=== PATIENT | male | born 2000 | race Asian ===

== ENCOUNTER 2019-08-18 10:50 | Emergency (ER) | payer OTHER ==
[~2019-08-18] VITALS: Ht 175.3 cm; Wt 59.0 kg
[2019-08-18 10:54] VITALS: BP 117/70
--- NOTE | 2019-08-18 11:35 | NUR ---
HIS PARENT @ BEDSIDE PENDING XRAY RESULT
--- NOTE | 2019-08-18 12:29 | NUR ---
Patient discharged to home in stable condition. Written and verbal after care instructions given. Patient verbalizes understanding of instruction.
== END 2019-08-18 12:29 | disposition home or self-care (01) ==
LOC: ER 10:51
DX: S62.325A Displaced fracture of shaft of fourth metacarpal bone, left hand, initial encounter for closed fracture (principal); R51 Headache; X58.XXXA Exposure to other specified factors, initial encounter; Y93.89 Activity, other specified; Y92.89 Other specified places as the place of occurrence of the external cause; Y99.8 Other external cause status
CPT/HCPCS: 73130-TC

== ENCOUNTER 2020-01-23 14:12 | Emergency (ER) | payer OTHER ==
[~2020-01-23] VITALS: Ht 172.7 cm; Wt 61.2 kg
--- NOTE | 2020-01-23 14:27 | NUR ---
PT TO ED BED 13 C/O R SIDED HEAD PAIN S/P FALLING OFF HIS SKATEBOARD AT AROUND 10AM TODAY. DENIES KO. 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 STABLE VITALS. AWAITING MD SPRAGUE.
--- NOTE | 2020-01-23 15:02 | NUR ---
DR CAMPOS BEDSIDE FOR EVAL
[2020-01-23] MEDS ORDERED: ONDANSETRON 4 MG TAB.RAPDIS SL ONE (16:30)
[2020-01-23] MEDS ORDERED: ONDANSETRON 4 MG TAB.RAPDIS ONE (16:38)
[2020-01-23 16:49] VITALS: BP 128/76
--- NOTE | 2020-01-23 16:49 | NUR ---
Patient discharged to home in stable condition. Written and verbal after care instructions given. Patient verbalizes understanding of instruction.
== END 2020-01-23 16:51 | disposition home or self-care (01) ==
LOC: ER 14:17
DX: S06.0X0A Concussion without loss of consciousness, initial encounter (principal); V00.131A Fall from skateboard, initial encounter; Y93.51 Activity, roller skating (inline) and skateboarding; Y92.331 Roller skating rink as the place of occurrence of the external cause; Y99.8 Other external cause status
CPT/HCPCS: 70450; 99284; Q0162

== ENCOUNTER 2021-10-08 22:26 | Emergency (ER) | payer OTHER ==
[~2021-10-08] VITALS: Ht 175.3 cm; Wt 59.0 kg
--- NOTE | 2021-10-08 22:45 | NUR ---
PT CAME IN D/T LEFT ANKLE SPRAIN.PT A/OX4.
--- NOTE | 2021-10-08 23:00 | NUR ---
Patient discharged to home in stable condition. Written and verbal after care instructions given. Patient verbalizes understanding of instruction.
[2021-10-08 23:10] VITALS: BP 113/72
== END 2021-10-08 23:10 | disposition home or self-care (01) ==
LOC: ER 22:29
DX: S93.492A Sprain of other ligament of left ankle, initial encounter (principal); Z60.2 Problems related to living alone; V00.131A Fall from skateboard, initial encounter; Y93.51 Activity, roller skating (inline) and skateboarding; Y92.331 Roller skating rink as the place of occurrence of the external cause; Y99.8 Other external cause status

== ENCOUNTER 2023-09-25 03:42 | Emergency (ER) | payer BC, OTHER ==
[~2023-09-25] VITALS: Ht 177.8 cm; Wt 68.0 kg
[2023-09-25 04:26] VITALS: BP 128/84; TEMP 98
[2023-09-25 05:01] LABS: APPEARANCE,URINE CLEAR (CLEAR); BILIRUBIN,URINE NEGATIVE (NEGATIVE); BLOOD, URINE NEGATIVE Ery/uL (NEGATIVE); COLOR,URINE YELLOW (YELLOW); KETONES,URINE NEGATIVE (NEGATIVE); LEUKOCYTE ESTERASE ,URINE NEGATIVE (NEGATIVE); NITRITE, URINE NEGATIVE (NEGATIVE); PROTEIN,URINE NEGATIVE (NEGATIVE); UGLUCOSE NEGATIVE (NEGATIVE); UROBILINOGEN,URINE 0.2 EU/dL (0.2)
[2023-09-25] MEDS ORDERED: DOXY100C2 PO (05:06)
[2023-09-25 05:34] VITALS: O2SAT 100
[2023-09-27 16:07] LABS: CHLAMYDIA TRACHOMATIS NAA Negative (Negative); NEISSERIA GONORRHOEAE NAA Negative (Negative)
== END 2023-09-25 05:07 | disposition home or self-care (01) ==
LOC: ER 03:46
DX: R30.0 Dysuria (principal); Z60.2 Problems related to living alone
CPT/HCPCS: 87491; 87591

== ENCOUNTER 2023-10-30 10:03 | Emergency (ER) | payer OTHER ==
[~2023-10-30 10:03] MED LIST: DOXY100C2 PO
== END 2023-10-30 10:40 | disposition left against medical advice (07) ==
LOC: ER 10:09
DX: R07.89 Other chest pain (principal); Z53.21 Procedure and treatment not carried out due to patient leaving prior to being seen by health care provider